=== PATIENT | male | born 2000 | race Caucasian/White ===

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

== ENCOUNTER 2023-09-29 19:09 | Emergency (ER) | payer SELFPAY ==
[2023-09-29] MEDS ORDERED: predniSONE 20 MG TABLET PO STA (19:21)
[2023-09-29] MEDS ORDERED: IPRATROPIUM/ALBUTEROL 3 ML NEB INH STA (19:21)
--- NOTE | 2023-09-29 19:24 | ED Physician Documentation ---
PD HPI DYSPNEA - Stated complaint Stated Complaint: SOA/COUGH/ASTHMA ATTACK - Chief complaint Chief Complaint: Resp - History obtained from History obtained from: Patient - Additional information Additional information: This is a 23-year-old male who has a history of asthma with multiple childhood hospitalizations due to asthma exacerbations who presents today feeling as though he is having an asthma exacerbation. The patient states a few days ago he had mild cold symptoms for 2 days, along with some body aches and headache. At that actually improved yesterday but then today he woke up and he was very wheezy and tight. He has tried his albuterol at home with a spacer without relief. He does not have any neb treatments at home. Patient used to be on a maintenance medication however he is currently without insurance and cannot afford those medications. He does not smoke. He denies any other concerns today. Review of Systems Constitutional: reports: Reviewed and negative Eyes: reports: Reviewed and negative Ears: reports: Reviewed and negative Nose: reports: Reviewed and negative Throat: reports: Reviewed and negative Cardiac: reports: Reviewed and negative Respiratory: reports: Dyspnea, Cough, Wheezing GI: reports: Reviewed and negative : reports: Reviewed and negative Skin: reports: Reviewed and negative Musculoskeletal: reports: Reviewed and negative Neurologic: reports: Reviewed and negative Psychiatric: reports: Reviewed and negative Endocrine: reports: Reviewed and negative PD PAST MEDICAL HISTORY - Past Medical History Past Medical History: Yes Cardiovascular: None Respiratory: Asthma Neuro: None Endocrine/Autoimmune: None GI: None : None HEENT: None Psych: None Musculoskeletal: None Derm: None - Past Surgical History Past Surgical History: Yes Ortho: Other - Present Medications Home Medications: Ambulatory Orders Medication Instructions Recorded Confirmed Albuterol Sulf [Ventolin Hfa 1 - 2 puffs INH Q4HR PRN #1 each 06/24/23 09/29/23 Inhaler] Albuterol Sulf [Ventolin Hfa 1 - 2 puffs INH Q4HR PRN #1 each 09/29/23 Inhaler] Fluticasone 110 Mcg [Flovent] 1 puffs INH BID #12 gm 09/29/23 predniSONE [Deltasone] 40 mg PO DAILY 5 Days #10 tablet 09/29/23 - Allergies Allergies/Adverse Reactions: Allergies Allergy/AdvReac Type Severity Reaction Status Date / Time No Known Drug Allergies Allergy Verified 09/29/23 19:13 - Social History Does the pt smoke?: No Smoking Status: Never smoker Does the pt drink ETOH?: No Does the pt have substance abuse?: Yes Substance Use and Type: Marijuana - Immunizations Immunizations are current?: Yes - POLST Patient has POLST: No PD ED PE NORMAL - Vitals Vital signs reviewed: Yes - General General: Alert and oriented X 3, No acute distress, Well developed/nourished - HEENT HEENT: Atraumatic, Moist mucous membranes - Neck Neck: Supple, no meningeal sign, No adenopathy - Cardiac Cardiac: RRR - Respiratory Respiratory: Other (Nonlabored but diffuse expiratory wheezes with prolonged expiratory phase. Diminished bilaterally.) - Abdomen Abdomen: Normal bowel sounds, Soft, Non tender, Non distended - Psych Psych: Normal mood, Normal affect Results - Vitals Vitals: Vital Signs - 24 hr 09/29/23 09/29/23 19:13 19:45 Temperature 36.2 C L Heart Rate 85 76 Respiratory 24 20 Rate Blood Pressure 166/110 H O2 Saturation 93 Oxygen O2 Source Room air PD Medical Decision Making - ED course Complexity details: reviewed results, considered differential, d/w patient ED course: 23-year-old Male who presents with wheezing and shortness of breath. He does have an underlying history of asthma. He arrives here in no acute distress, oxygenating well on room air but with diffuse expiratory wheezes and diminished lung sounds. High suspicion for asthma exacerbation but given patient's prodromal URI type symptoms, I did offer a respiratory panel which patient did want to do. This is pending at this time. The patient was given a DuoNeb and oral prednisone as he declined IV or IM medication. We will monitor here in the ER and I anticipate patient will be able to be discharged home once symptoms have improved. Patient received a DuoNeb and a dose of oral steroids and feels substantially better. I am going to discharge him home with as needed albuterol and an additional 5 days of steroids, the patient was also given a prescription for Flovent Though depending on the hagen he may not be able to afford this. I have encouraged him to sign up for [employer] to get insurance and then try to establish a primary care provider to help manage his asthma. I discussed return precautions if any new or worsening symptoms. Departure - Departure Disposition: 01 Home, Self Care Clinical Impression: Asthma exacerbation Qualifiers: Asthma severity: unspecified severity Asthma persistence: unspecified Qualified Code(s): J45.901 - Unspecified asthma with (acute) exacerbation Condition: Good Instructions: Asthma Dc Prescriptions: Albuterol Sulf [Ventolin Hfa Inhaler] 1 - 2 puffs INH Q4HR PRN #1 each PRN Reason: Shortness Of Air/Wheezing predniSONE [Deltasone] 40 mg PO DAILY 5 Days #10 tablet Fluticasone 110 Mcg [Flovent] 1 puffs INH BID #12 gm Comments: I have ordered Flovent for you to take every day to help prevent asthma exacerbations and then the albuterol to use as needed. I am also giving you a few days of steroids. Take this as prescribed. If you have recurrent symptoms that are not relieved by your home medication, return to the ER. Please try to establish a primary care provider so that you have someone that can manage her asthma in the future. You may have to get on a waiting list at various different clinics until they have space available, unfortunately there is a shortage of primary care providers locally. Forms: PCP List
[2023-09-29 20:48] VITALS: BP 130/88; O2SAT 98
[2023-09-29 21:13] LABS: B. PARAPERTUSSIS- RESP PCR PAN NOT DETECTED; B. PERTUSSIS- RESP PCR PANEL NOT DETECTED; C. PNEUMONIAE- RESP PCR PANEL NOT DETECTED; CORONAVIRUS 229E-RESP PCR NOT DETECTED; CORONAVIRUS HKU1-RESP PCR NOT DETECTED; CORONAVIRUS NL63-RESP PCR NOT DETECTED; CORONAVIRUS OC43-RESP PCR NOT DETECTED; HUMAN METAPNEUMOVIRUS NOT DETECTED; INFLUENZA A- RESP PCR PANEL NOT DETECTED; INFLUENZA B - RESP PCR PANEL NOT DETECTED; M. PNEUMONIAE- RESP PCR PANEL NOT DETECTED; PARAINFLUENZA VIRUS 1 NOT DETECTED; PARAINFLUENZA VIRUS 2 NOT DETECTED; PARAINFLUENZA VIRUS 3 NOT DETECTED; PARAINFLUENZA VIRUS 4 NOT DETECTED; RHINOVIRUS/ENTEROVIRUS DETECTED; RSV- RESP PCR PANEL NOT DETECTED; SARS-CoV-2 -RESP PCR PANEL NOT DETECTED
== END 2023-09-29 20:40 | disposition home or self-care (01) ==
LOC: ED 19:09
DX: J45.901 Unspecified asthma with (acute) exacerbation (principal)
CPT/HCPCS: 87633; 94640; 94664; 99283; 99284; J7512